=== PATIENT | female | born 1955 | race Caucasian/White ===

== ENCOUNTER 2022-06-22 09:17 | Emergency (ER) | payer MEDICARE, SELFPAY ==
[2022-06-22 09:22] VITALS: BP 149/80; PULSE 60; RESP 16; TEMP 36.8; O2SAT 100
--- NOTE | 2022-06-22 09:32 | ED.EAR ---
HPI - Ear Problem General Chief complaint: Ear Stated complaint: right ear Source: patient and RN notes reviewed History of Present Illness HPI Narrative: 67-year-old female presents to urgent care with complaints right ear pain x2 days. Patient reports pain in front of her ear and behind as well as inside her ear. Pt reports itching in her ear and states she feels fluid but has seen any. Reports some dizziness. Pt states she has been a little congested x 2 days as well. Denies any fevers, chills, vomiting, or other complaints. Related Data Home Medications Medication Instructions Recorded Confirmed atorvastatin 40 mg tablet 40 mg PO DAILY 05/24/21 06/22/22 buspirone 5 mg tablet 5 mg PO DAILY 05/24/21 06/22/22 citalopram 40 mg tablet 20 mg PO DAILY 05/24/21 06/22/22 fluticasone propionate 110 1 puff inhalation Q12H 05/24/21 06/22/22 mcg/actuation HFA aerosol inhaler (Flovent HFA) levothyroxine 75 mcg capsule 75 mcg PO DAILY 05/24/21 06/22/22 montelukast 10 mg tablet 10 mg PO DAILY 05/24/21 06/22/22 omeprazole 20 mg tablet,delayed 20 mg PO DAILY 05/24/21 06/22/22 release Allergies Allergy/AdvReac Type Severity Reaction Status Date / Time amoxicillin Allergy Unknown Rash, htn, Verified 05/24/21 13:08 hives, itching linaclotide [From Linzess] Allergy Unknown Gastrointestinal Verified 05/24/21 13:08 Upset, diarrhea Review of Systems Review of Systems: CONSTITUTIONAL: Denies fever, chills, or sweats. EYES: Denies visual changes, redness, or discharge. ENT:otalgia and congestion CARDIOVASCULAR: Denies chest pain, palpitations, or edema. RESPIRATORY: Denies cough or dyspnea. GASTROINTESTINAL: Denies abdominal pain, nausea, vomiting, or diarrhea. GENITOURINARY: Denies dysuria or hematuria. SKIN: Denies rash or itching. MUSCULOSKELETAL: Denies back pain, joint pain, or myalgia. NEUROLOGIC: Denies headache, numbness, or weakness. [facility] Past Medical History Medical History Anxiety Arthritis Chronic GERD COPD (chronic obstructive pulmonary disease) Elective x1 Hyperlipidemia Hypothyroidism Osteoporosis Vaginal delivery x1 Surgical History Surgical History History of ear surgery 1978, plastic eardrum History of hand surgery 12-28-20, left hand [place] teeth extracted 1981 Family History Family History Father Carcinoma of colon Diabetes mellitus Hypertension Heart disease Family history of thyroid disease Hypercholesteremia Mother Hypertension Heart disease Cerebrovascular accident Thyroid disorder Hypercholesteremia Social History Social History Smoking status: Never smoker Alcohol intake: never Substance use: never Agree to blood products: Yes Comments At the time of my signature, I reviewed and agree with the nursing past medical, surgical, social, and family history. There is no relevant family history pertinent to the patient complaint. Exam Narrative: GENERAL: This is a well-nourished, well-developed patient, in no apparent distress. HEAD: normocephalic, atraumatic. EYES: PERRL. Sclera clear/white. Vision is grossly intact. EARS: Left ear no signsof infection. Right canal edematous and erythremic. TM also erythremic and bulging. No discharge. External ear normal. NOSE: External nose normal with no obvious nasal discharge, nares without redness, no rhinorrhea. THROAT: Mucous membranes moist, posterior pharynx clear. NECK: Neck supple, non-tender without lymphadenopathy, masses or thyromegaly. CARDIOVASCULAR: Regular rate and rhythm without murmurs, gallops, or rubs. RESPIRATORY: Clear to auscultation. Breath sounds equal bilaterally. No wheezes, rales, or rhonchi. GASTROINTESTINAL
== END 2022-06-22 09:39 | disposition home or self-care (01) ==
PROVIDERS: Emergency Provider Nurse Practitioner Family; PCP Physician Assistant
DX: H66.91 Otitis media, unspecified, right ear (principal); M19.90 Unspecified osteoarthritis, unspecified site; K21.9 Gastro-esophageal reflux disease without esophagitis; J44.9 Chronic obstructive pulmonary disease, unspecified; E78.5 Hyperlipidemia, unspecified; E03.9 Hypothyroidism, unspecified; M81.0 Age-related osteoporosis without current pathological fracture; F41.9 Anxiety disorder, unspecified
CPT/HCPCS: 99213; G0463

== ENCOUNTER 2023-01-11 14:30 | Emergency (ER) | payer MEDICARE, SELFPAY ==
[2023-01-11] VITALS (16 sets, daily range): BP systolic 132–139; BP diastolic 70–91; PULSE 62–82; RESP 16–24; TEMP 36.3; O2SAT 97–100
--- NOTE | ~2023-01-11 | XR_ITS ---
EXAMINATION: XR chest 2V DATE: 01/11/2023 14:58 INDICATION: Mid chest pain. TECHNIQUE: Frontal and lateral views of the chest were obtained. COMPARISON: Chest 2 views 10/06/2017 FINDINGS: There is no pneumonia, pleural effusion, or pneumothorax. The heart size is normal. There i s chronic anterior wedging of multiple midthoracic vertebral bodies. IMPRESSION: 1. No acute cardiopulmonary disease. Reviewed, dictated and finalized at location E.
--- NOTE | 2023-01-11 14:31 | ECG_ITS ---
Measurements Intervals [place] Rate: 86 P: 82 AR: 166 QRS: -47 QRSD: 90 T: 48 QT: 369 QTc: 441 Interpretive Statements SINUS RHYTHM LEFT ANTERIOR FASCICULAR BLOCK [QRS AXIS <= -45, QR IN I, RS IN II] NO PREVIOUS ECG AVAILABLE FOR COMPARISON Electronically Signed On 01-12-2023 14:09:27 CDT by Sim Mireles M.D.
[2023-01-11 15:03] LABS: Basophils Absolute Auto 0.1 K/mm3 (0.0-0.1); Basophils Percent Auto 0.9 % (0.2-1.2); Eosinophils Percent Auto 0.5 % (0-4.4); Hematocrit 40.1 % (37.0-47.0); Hemoglobin 13.4 g/dL (12.0-15.0); Immature Granulocyte Absolute 0.01 K/mm3 (0.00-0.031); Immature Granulocyte Percent A 0.2 % (0-0.5); Lymphocytes Absolute Auto 2.13 K/mm3 (0.9-3.2); Lymphocytes Percent Auto 38.4 % (18.3-44.2); Mean Corpuscular HGB Conc 33.4 g/dl (32-36); Mean Corpuscular Hemoglobin 30.5 pg (26-34); Mean Corpuscular Volume 91.3 fl (80-100); Mean Platelet Volume 10.6 fl (7.4-10.4); Monocytes Absolute Auto 0.5 K/mm3 (0.1-0.6); Monocytes Percent Auto 8.1 % (2.6-8.5); Neutrophils Absolute Auto 2.9 K/mm3 (1.3-6.7); Neutrophils Percent Auto 51.9 % (45.5-73.1); Platelet Count Result 280 k/mm3 (150-375); Red Blood Count 4.39 M/mm3 (4.2-5.4); Red Cell Distribution Width 12.8 % (11.5-14.5); White Blood Count 5.6 K/mm3 (4.5-10.0)
[2023-01-11 15:10] LABS: Alanine Aminotransferase 26 U/L (6-35); Albumin Level 4.8 g/dL (3.5-5.1); Alkaline Phosphatase 83 U/L (38-126); Anion Gap 7 mmol/L (8-16); Aspartate Amino Transferase 35 U/L (14-36); Bilirubin,Total 0.5 mg/dL (0.2-1.3); Blood Urea Nitrogen 12 mg/dL (7-17); Calcium 8.9 mg/dL (8.4-10.2); Carbon Dioxide 26 mmol/L (22-30); Chloride 101 mmol/L (98-107); Estimated CRCL calculation 77 ml/min; Estimated Glomerular Filt Rate > 60; Glucose 107 mg/dL (65-110); Lipase 92 U/L (23-300); Potassium 3.7 mmol/L (3.4-5.0); Sodium 134 mmol/L (137-145)
[2023-01-11 15:14] LABS: Partial Thromboplastin Time 29.4 SECONDS (22.3-36.8); Prothrombin Time 13.2 Seconds (11.1-14.7)
[2023-01-11 15:21] LABS: Troponin I < 0.012 ng/mL (0.000-0.034)
[2023-01-11 18:11] LABS: Troponin I < 0.012 ng/mL (0.000-0.034)
--- NOTE | 2023-01-11 19:15 | PC.NURSE ---
Assumed care of pt from LENNY Keller at this time.
--- NOTE | 2023-01-11 19:16 | ED.GENADULT ---
HPI - General Adult General Chief complaint: Chest Pain Stated complaint: chest pain-HTN Time Seen by Provider: 01/11/23 18:56 History of Present Illness HPI narrative: 67-year-old female with history of hypertension and high cholesterol presented the ED for evaluation of episode of lightheadedness and chest pain. 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 Patient noticed that her blood pressure at that time was 155/111. Patient states she has had no recurrence of the chest pain. Patient denies any current chest pain chest pressure or shortness of breath. Patient does have prior history of stress test but denies any prior history of MT. Related Data Home Medications Medication Instructions Recorded Confirmed atorvastatin 40 mg tablet 40 mg PO DAILY 05/24/21 06/22/22 buspirone 5 mg tablet 5 mg PO DAILY 05/24/21 06/22/22 citalopram 40 mg tablet 20 mg PO DAILY 05/24/21 06/22/22 fluticasone propionate 110 1 puff inhalation Q12H 05/24/21 06/22/22 mcg/actuation HFA aerosol inhaler (Flovent HFA) levothyroxine 75 mcg capsule 75 mcg PO DAILY 05/24/21 06/22/22 montelukast 10 mg tablet 10 mg PO DAILY 05/24/21 06/22/22 omeprazole 20 mg tablet,delayed 20 mg PO DAILY 05/24/21 06/22/22 release Allergies Allergy/AdvReac Type Severity Reaction Status Date / Time amoxicillin Allergy Unknown Rash, htn, Verified 01/11/23 14:31 hives, itching linaclotide [From Linzess] Allergy Unknown Gastrointestinal Verified 01/11/23 14:31 Upset, diarrhea Review of Systems Review of Systems: All systems reviewed & are unremarkable except as noted in HPI and below PMFSH Past Medical History Medical History Anxiety Arthritis Chronic GERD COPD (chronic obstructive pulmonary disease) Elective x1 Hyperlipidemia Hypothyroidism Osteoporosis Vaginal delivery x1 Surgical History Surgical History History of ear surgery 1978, plastic eardrum History of hand surgery 12-28-20, left hand [place] teeth extracted 1981 Family History Family History Father Carcinoma of colon Diabetes mellitus Hypertension Heart disease Family history of thyroid disease Hypercholesteremia Mother Hypertension Heart disease Cerebrovascular accident Thyroid disorder Hypercholesteremia Social History Social History Smoking status: Never smoker Alcohol intake: never Substance use: never Agree to blood products: Yes Exam Narrative: APPEARANCE: Well appearing, no pain, no distress, well-nourished. HEAD: normocephalic, atraumatic. EYES: PERRLA/EOMI, conjunctivae clear. NOSE: Normal no drainage NECK: Supple. No adenopathy, no masses. RESPIRATORY: Airway patent, respirations nonlabored. Clear to auscultation bilaterally, no rales, rhonchi, wheezing. CARDIOVASCULAR: Regular rate and rhythm without murmurs rubs or gallops. ABDOMINAL: Soft, nontender, nondistended, normal bowel sounds MUSCULOSKELETAL: Moves all extremities. Strength/ROM intact, No edema, No calf tenderness. NEURO: Alert. Cranial nerves II through XII intact. Grossly intact SKIN: Warm, dry. Normal Color Course Course Emergency Course: 67-year-old female presented the emergency department for evaluation of an episode of lightheaded dizziness and chest pain. Patient is currently pain-free and denies any complaints. Patient is afebrile with no leukocytosis and a stable hemoglobin. Chest x-ray showed no acute cardiopulmonary abnormality. Patient had negative serial troponins. Patient was updated on the results of her work-up an
== END 2023-01-11 21:36 | disposition home or self-care (01) ==
PROVIDERS: Preventive Medicine Aerospace Medicine; Emergency Provider Emergency Medicine; PCP Physician Assistant
DX: R07.9 Chest pain, unspecified (principal); I10 Essential (primary) hypertension; E78.00 Pure hypercholesterolemia, unspecified; E03.9 Hypothyroidism, unspecified; K21.9 Gastro-esophageal reflux disease without esophagitis; M19.90 Unspecified osteoarthritis, unspecified site; M81.0 Age-related osteoporosis without current pathological fracture; F41.9 Anxiety disorder, unspecified; I44.4 Left anterior fascicular block
CPT/HCPCS: 36415; 71046; 80053; 83690; 84484; 85025; 85610; 85730; 93005; 99284

== ENCOUNTER 2023-04-25 16:57 | Emergency (ER) | payer MEDICARE, SELFPAY ==
[2023-04-25 17:01] VITALS: BP 138/67; PULSE 81; RESP 18; TEMP 36.4; O2SAT 100
--- NOTE | 2023-04-25 17:26 | ED.URI ---
HPI - URI/Sore Throat General Chief Complaint: Upper Respiratory Infection Stated Complaint: sinus infection Source: patient Mode of arrival: ambulatory Limitations: no limitations History of Present Illness HPI Narrative: 68-year-old female presented for complaint of sinus pressure, drainage, and congestion for about 2 weeks. Also reports mild cough. States these symptoms actually started early 03/2023 when she had covid, improved slightly without fully resolving. Taking otc meds without relief. Denies sob, wheezing, n/v/d/f/c. Related Data Home Medications Medication Instructions Recorded Confirmed atorvastatin 40 mg tablet 40 mg PO DAILY 05/24/21 06/22/22 buspirone 5 mg tablet 5 mg PO DAILY 05/24/21 06/22/22 citalopram 40 mg tablet 20 mg PO DAILY 05/24/21 06/22/22 fluticasone propionate 110 1 puff inhalation Q12H 05/24/21 06/22/22 mcg/actuation HFA aerosol inhaler (Flovent HFA) levothyroxine 75 mcg capsule 75 mcg PO DAILY 05/24/21 06/22/22 montelukast 10 mg tablet 10 mg PO DAILY 05/24/21 06/22/22 omeprazole 20 mg tablet,delayed 20 mg PO DAILY 05/24/21 06/22/22 release lisinopril 10 mg tablet mg 04/25/23 mometasone-formoterol HFA 100 inhalation 04/25/23 mcg-5 mcg/actuation aerosol inhaler (Dulera) omeprazole 20 mg capsule,delayed mg 04/25/23 release zafirlukast 10 mg tablet mg 04/25/23 Allergies Allergy/AdvReac Type Severity Reaction Status Date / Time amoxicillin Allergy Unknown Rash, htn, Verified 04/25/23 17:27 hives, itching linaclotide [From Linzess] Allergy Unknown Gastrointestinal Verified 04/25/23 17:27 Upset, diarrhea Review of Systems Review of Systems: CONSTITUTIONAL: Denies body aches, fever, chills, or sweats. EYES: Denies visual changes, redness, or discharge. ENT: reports rhinorrhea, congestion, denies sore throat, or otalgia. CARDIOVASCULAR: Denies chest pain, palpitations, or edema. RESPIRATORY: Denies dyspnea. SKIN: Denies rash, itching, or wounds. NEUROLOGIC: Denies headache, numbness, tingling, or weakness. All systems reviewed & are unremarkable except as noted in HPI and below PMFSH Past Medical History Medical History Anxiety Arthritis Chronic GERD COPD (chronic obstructive pulmonary disease) Elective x1 Hyperlipidemia Hypothyroidism Osteoporosis Vaginal delivery x1 Surgical History Surgical History History of ear surgery 1978, plastic eardrum History of hand surgery 12-28-20, left hand [place] teeth extracted 1981 Family History Family History Father Carcinoma of colon Diabetes mellitus Hypertension Heart disease Family history of thyroid disease Hypercholesteremia Mother Hypertension Heart disease Cerebrovascular accident Thyroid disorder Hypercholesteremia Social History Social History Smoking status: Never smoker Alcohol intake: never Substance use: never Agree to blood products: Yes Comments At time of signature, I have reviewed and agree with nursing past medical, surgical, social and family history unless otherwise noted. Please see nursing chart for further information. There is no relevant family history pertinent to the presenting complaint Exam Narrative: GENERAL: Well-appearing EYES: EOMI. No redness or drainage. Conjunctivae normal. ENT: Mucous membranes pink and moist. mild nasal congestion. TMs normal bilaterally; left TM irregular c/w previous surgery. Throat normal. Uvula midline. NECK: Normal AROM. Supple. No lymphadenopathy. CHEST: No respiratory distress. Clear to auscultation. HEART: Regular rate and rhythm. No murmur appreciated. Normal peripheral pulses. SKIN: Warm, dry, no rash. Capillary refill normal. Normal skin turgor. NEURO
== END 2023-04-25 17:47 | disposition home or self-care (01) ==
PROVIDERS: Emergency Provider Nurse Practitioner Family; PCP Physician Assistant
DX: J32.9 Chronic sinusitis, unspecified (principal); M19.90 Unspecified osteoarthritis, unspecified site; K21.9 Gastro-esophageal reflux disease without esophagitis; J44.9 Chronic obstructive pulmonary disease, unspecified; E78.5 Hyperlipidemia, unspecified; E03.9 Hypothyroidism, unspecified; M81.0 Age-related osteoporosis without current pathological fracture; F41.9 Anxiety disorder, unspecified
CPT/HCPCS: 99213; G0463

== ENCOUNTER 2023-12-14 08:29 | Emergency (ER) | payer MEDICARE, SELFPAY ==
[2023-12-14 08:35] VITALS: BP 153/89; PULSE 94; RESP 16; TEMP 36.6; O2SAT 100
--- NOTE | 2023-12-14 08:51 | ED.URI ---
HPI - URI/Sore Throat General Chief Complaint: Upper Respiratory Infection Stated Complaint: Cough/Sore Throat/Headache/Ear Pain Source: patient and RN notes reviewed Mode of arrival: ambulatory Limitations: no limitations History of Present Illness HPI Narrative: 68-year-old female presented for complaint of right lower jaw pain for about 1 week, following a tooth extraction to the right lower jaw. She has taken occasional Tylenol and ibuprofen. Endorses pain radiating to the right ear. Denies facial swelling to the site. She completed the course of clindamycin yesterday as prescribed. Pt also reports nasal congestion and drainage, hoarse voice, and headache for a few weeks; pt was scheduled with ENT for sinus surgery today but canceled it yesterday due to symptoms. Takes azelastine and montelukast. MD elicited complaint: cough Related Data Home Medications Medication Instructions Recorded Confirmed atorvastatin 40 mg tablet 40 mg PO DAILY 05/24/21 06/22/22 buspirone 5 mg tablet 5 mg PO DAILY 05/24/21 06/22/22 citalopram 40 mg tablet 20 mg PO DAILY 05/24/21 06/22/22 fluticasone propionate 110 1 puff inhalation Q12H 05/24/21 06/22/22 mcg/actuation HFA aerosol inhaler (Flovent HFA) levothyroxine 75 mcg capsule 75 mcg PO DAILY 05/24/21 06/22/22 montelukast 10 mg tablet 10 mg PO DAILY 05/24/21 06/22/22 omeprazole 20 mg tablet,delayed 20 mg PO DAILY 05/24/21 06/22/22 release budesonide 04/25/23 lisinopril 10 mg tablet mg 04/25/23 mometasone-formoterol HFA 100 inhalation 04/25/23 mcg-5 mcg/actuation aerosol inhaler (Dulera) omeprazole 20 mg capsule,delayed mg 04/25/23 release zafirlukast 10 mg tablet mg 04/25/23 Allergies Allergy/AdvReac Type Severity Reaction Status Date / Time amoxicillin Allergy Unknown Rash, htn, Verified 04/25/23 17:27 hives, itching linaclotide [From Linzess] Allergy Unknown Gastrointestinal Verified 04/25/23 17:27 Upset, diarrhea Review of Systems Review of Systems: CONSTITUTIONAL: Denies malaise, chills, sweats, fever EYES: Denies visual changes, redness, or discharge ENT: Reports rhinorrhea, congestion, sinus pain, denies otalgia, sore throat CARDIOVASCULAR: Denies chest pain, palpitations, edema RESPIRATORY: Reports cough, post nasal drainage. Denies dyspnea GASTROINTESTINAL: Denies abdominal pain, nausea, vomiting, diarrhea SKIN: Denies rash or itching MUSCULOSKELETAL: denies myalgia NEUROLOGIC: Denies headache [facility] Past Medical History Medical History Anxiety Arthritis Chronic GERD COPD (chronic obstructive pulmonary disease) Elective x1 Hyperlipidemia Hypothyroidism Osteoporosis Vaginal delivery x1 Surgical History Surgical History History of ear surgery 1978, plastic eardrum History of hand surgery 12-28-20, left hand [place] teeth extracted 1981 Family History Family History Father Carcinoma of colon Diabetes mellitus Hypertension Heart disease Family history of thyroid disease Hypercholesteremia Mother Hypertension Heart disease Cerebrovascular accident Thyroid disorder Hypercholesteremia Social History Social History Smoking status: Never smoker Alcohol intake: never Substance use: never Agree to blood products: Yes Exam Narrative: GENERAL: well-appearing, nontoxic no acute distress. EYES: PERRLA, conjunctivae clear ENT: Mucous membranes moist. TMs pearly hallman with dull light reflex bilaterally; no tragal tenderness. Oropharynx not erythematous without lesions or exudate, no drooling, no hoarseness, no trismus, uvula midline. No tripod positioning, muffled voice, soft palate or pharyngeal wall bulging NECK: Supple. No lymphadenopathy CHEST: Clear t
[2023-12-14 09:20] LABS: EDINFLUASCREEN Negative; EDINFLUBSCREEN Negative
== END 2023-12-14 09:29 | disposition home or self-care (01) ==
PROVIDERS: Emergency Provider Nurse Practitioner Family; PCP Physician Assistant
DX: J06.9 Acute upper respiratory infection, unspecified (principal); Z20.822 Contact with and (suspected) exposure to COVID-19; M19.90 Unspecified osteoarthritis, unspecified site; K21.9 Gastro-esophageal reflux disease without esophagitis; J44.9 Chronic obstructive pulmonary disease, unspecified; E78.5 Hyperlipidemia, unspecified; E03.9 Hypothyroidism, unspecified; M81.0 Age-related osteoporosis without current pathological fracture; F41.9 Anxiety disorder, unspecified
CPT/HCPCS: 87426; 87804; 99213; G0463

== ENCOUNTER 2023-12-31 09:32 | Emergency (ER) | payer MEDICARE, SELFPAY ==
[2023-12-31 09:36] VITALS: BP 161/98; PULSE 75; RESP 20; TEMP 36.6; O2SAT 100
--- NOTE | 2023-12-31 09:44 | ED.URI ---
HPI - URI/Sore Throat General Chief Complaint: Upper Respiratory Infection Stated Complaint: sinus/ears Source: patient Mode of arrival: ambulatory Limitations: no limitations History of Present Illness HPI Narrative: 68-year-old female presented for complaint of nasal congestion and drainage, right ear hissing sound and occasionally off balance. Takes azelastine and montelukast. Denies ear drainage or pain. Patient was planning to follow-up with ENT however she has pending Cardiology consultation first. Denies any shortness of breath, wheezing, nausea, vomiting, fevers or chills. Related Data Home Medications Medication Instructions Recorded Confirmed atorvastatin 40 mg tablet 40 mg PO DAILY 05/24/21 06/22/22 buspirone 5 mg tablet 5 mg PO DAILY 05/24/21 06/22/22 citalopram 40 mg tablet 20 mg PO DAILY 05/24/21 06/22/22 fluticasone propionate 110 1 puff inhalation Q12H 05/24/21 06/22/22 mcg/actuation HFA aerosol inhaler (Flovent HFA) levothyroxine 75 mcg capsule 75 mcg PO DAILY 05/24/21 06/22/22 montelukast 10 mg tablet 10 mg PO DAILY 05/24/21 06/22/22 omeprazole 20 mg tablet,delayed 20 mg PO DAILY 05/24/21 06/22/22 release budesonide 04/25/23 lisinopril 10 mg tablet mg 04/25/23 mometasone-formoterol HFA 100 inhalation 04/25/23 mcg-5 mcg/actuation aerosol inhaler (Dulera) omeprazole 20 mg capsule,delayed mg 04/25/23 release zafirlukast 10 mg tablet mg 04/25/23 Allergies Allergy/AdvReac Type Severity Reaction Status Date / Time amoxicillin Allergy Unknown Rash, htn, Verified 04/25/23 17:27 hives, itching linaclotide [From Linzess] Allergy Unknown Gastrointestinal Verified 04/25/23 17:27 Upset, diarrhea Review of Systems Review of Systems: CONSTITUTIONAL: Denies malaise, chills, or fever. EYES: Denies visual changes, redness, or discharge. ENT: reports rhinorrhea, congestion, ear ringing; denies ear pain CARDIOVASCULAR: Denies chest pain, palpitations, or edema. RESPIRATORY: Denies cough or dyspnea. SKIN: Denies rash MUSCULOSKELETAL: Denies myalgia. NEUROLOGIC: Denies headache. All systems reviewed & are unremarkable except as noted in HPI and below PMFSH Past Medical History Medical History Anxiety Arthritis Chronic GERD COPD (chronic obstructive pulmonary disease) Elective x1 Hyperlipidemia Hypothyroidism Osteoporosis Vaginal delivery x1 Surgical History Surgical History History of ear surgery 1978, plastic eardrum History of hand surgery 12-28-20, left hand [place] teeth extracted 1981 Family History Family History Father Carcinoma of colon Diabetes mellitus Hypertension Heart disease Family history of thyroid disease Hypercholesteremia Mother Hypertension Heart disease Cerebrovascular accident Thyroid disorder Hypercholesteremia Social History Social History Smoking status: Never smoker Alcohol intake: never Substance use: never Agree to blood products: Yes Comments At time of signature, agree with nursing past medical, surgical, social and family history. There is no relevant family history pertinent to the presenting complaint Exam Narrative: GENERAL: Well-appearing EYES: conjunctivae clear ENT: Nares clear. Mucous membranes moist. TMs pearly hallman with normal light reflex bilaterally; Left TM hx reconstruction; no tragal tenderness. Oropharynx not erythematous without lesions. Tonsils not enlarged and without exudate, no drooling, no hoarseness, no trismus, uvula midline. NECK: Supple. No lymphadenopathy CHEST: Clear to auscultation, breath sounds equal. No wheezing, rhonchi, rales, or stridor. No respiratory distress, speaks in full sentences. HEART: Regular rate and rhythm. No mur
== END 2023-12-31 10:00 | disposition home or self-care (01) ==
PROVIDERS: Emergency Provider Nurse Practitioner Family; PCP Physician Assistant
DX: H93.19 Tinnitus, unspecified ear (principal); M19.90 Unspecified osteoarthritis, unspecified site; K21.9 Gastro-esophageal reflux disease without esophagitis; J44.9 Chronic obstructive pulmonary disease, unspecified; E78.5 Hyperlipidemia, unspecified; E03.9 Hypothyroidism, unspecified; M81.0 Age-related osteoporosis without current pathological fracture; F41.9 Anxiety disorder, unspecified
CPT/HCPCS: 99211; G0463